=== PATIENT | male | born 1970 ===

== ENCOUNTER 2020-07-07 21:08 | Emergency (ER) | payer OTHER ==
[~2020-07-07] VITALS: Ht 172.7 cm; Wt 72.6 kg
[2020-07-07 21:12] VITALS: BP 133/89
[2020-07-07] MEDS: ONDANSETRON 4 MG ODT PO ONE (21:41)
[2020-07-07] MEDS: HYDROcodone/APAP 5/325 MG 1 TAB TAB PO ONE ×2 (21:42→22:44)
[2020-07-08 00:19] VITALS: BP 108/54
== END 2020-07-08 00:19 | disposition home or self-care (01) ==
LOC: MED 21:08
DX: S39.012A Strain of muscle, fascia and tendon of lower back, initial encounter (principal); S20.219A Contusion of unspecified front wall of thorax, initial encounter; R51.9 Headache, unspecified; M62.82 Rhabdomyolysis; V89.2XXA Person injured in unspecified motor-vehicle accident, traffic, initial encounter; Y93.89 Activity, other specified; Y92.89 Other specified places as the place of occurrence of the external cause; Y99.8 Other external cause status
CPT/HCPCS: 70450; 71101; 99284; Q0162